=== PATIENT | female | born 1940 | race Two or more races ===

== ENCOUNTER 2017-08-06 12:01 | Inpatient (IN) | payer OTHER ==
[~2017-08-06] VITALS: Ht 142.2 cm; Wt 73.0 kg
[2017-08-06] MEDS ORDERED: PAXIL40 MG PO (12:41)
[2017-08-06] MEDS ORDERED: LIPITOR40 MG PO (12:41)
== END 2017-08-09 18:49 | disposition home or self-care (01) | DRG 743 ==
LOC: OB/GYN 08-08 06:15 → O/R 08-08 06:15 → SURG 08-08 08:30 → OB/GYN 08-08 16:07
PROVIDERS: Obstetrics & Gynecology Gynecologic Oncology
PROC: 0UT74ZZ Resection of Bilateral Fallopian Tubes, Percutaneous Endoscopic Approach (ICD-10-PCS; 2017-08-08)
PROC: 0UT24ZZ Resection of Bilateral Ovaries, Percutaneous Endoscopic Approach (ICD-10-PCS; 2017-08-08)
PROC: 0DNU4ZZ Release Omentum, Percutaneous Endoscopic Approach (ICD-10-PCS; 2017-08-08)
PROC: 0UT94ZZ Resection of Uterus, Percutaneous Endoscopic Approach (ICD-10-PCS; principal; 2017-08-08 08:30)
DX: D25.1 Intramural leiomyoma of uterus (principal); D06.7 Carcinoma in situ of other parts of cervix; E78.00 Pure hypercholesterolemia, unspecified; E66.8 Other obesity; M79.7 Fibromyalgia; N72 Inflammatory disease of cervix uteri; N83.292 Other ovarian cyst, left side

== ENCOUNTER 2023-02-25 14:18 | Inpatient (IN) | payer OTHER ==
[~2023-02-25] VITALS: Ht 154.9 cm; Wt 44.9 kg
[~2023-02-25 14:18] MED LIST: LIPITOR40 MG PO; PAXIL40 MG PO
--- NOTE | 2023-02-25 14:26 | NUR ---
SE RECIBE PTE ALERTA Y ORIENTADA FAMILIAR REFIERE TENER [facility] 3 SEMANAS CON DEBILIDAD GENERALIZADA Y POCO APETITO, LA MISMA TIENE HISTORIAL DE INFARTO. PTE NO TIENE NINIGUN MEDICO EN HOSPITAL. SE JORDAN VITALES Y REALIZA DEXTRO 110. SE TOMN VITALES Y SE DOUG EN AMANDA DE ESPERA.
--- NOTE | 2023-02-25 15:31 | NUR ---
AMPARO BETH ORIENTA A PTE SOBRE TRATAMIENTO E INSTRUCCIONES A SEGUIR, LEO REFIERE ENTENDER. LE COLECTA MUESTRAS, SE CANALIZA Y SE ADMINISTRA IV FLUIDS DENG ORDEN MEDICA
[2023-02-25 15:49] LABS: HEMATOCRIT 32.2 % (36.0-45.00); HEMOGLOBIN 10.7 g/dL (12.0-15.00); MEAN CELL VOLUME 88.5 fL (80.00-100.00); MEAN CORPUSCULAR HEMOGLOBIN 29.5 pg (27.00-32.0); MEAN CORPUSCULAR HGB CONC 33.3 g/dl (32.0-36.0); PLATELET COUNT 266 K/uL (150-450); RED BLOOD COUNT 3.64 M/uL (4.00-6.00); RED CELL DISTRIBUTION WIDTH 15.7 % (11.5-14.5)
--- NOTE | 2023-02-25 16:02 | NUR ---
SE COLOCA ANA LILIA Y SE ORIENTA A FAMILIAR SOBRE PROCESO A SEGUIR. SE ENTREGA RNVASE DE U/A, PENDIENTE A RECOLECTAR.
[2023-02-27 08:09] LABS: HEMATOCRIT 31.4 % (36.0-45.00); HEMOGLOBIN 10.3 g/dL (12.0-15.00); MEAN CELL VOLUME 89.9 fL (80.00-100.00); MEAN CORPUSCULAR HEMOGLOBIN 29.6 pg (27.00-32.0); PLATELET COUNT 267 K/uL (150-450); RED BLOOD COUNT 3.49 M/uL (4.00-6.00); RED CELL DISTRIBUTION WIDTH 15.9 % (11.5-14.5)
[2023-03-01 05:38] LABS: HEMATOCRIT 28.1 % (36.0-45.00); MEAN CELL VOLUME 89.8 fL (80.00-100.00); MEAN CORPUSCULAR HGB CONC 32.4 g/dl (32.0-36.0); PLATELET COUNT 179 K/uL (150-450); RED BLOOD COUNT 3.13 M/uL (4.00-6.00); RED CELL DISTRIBUTION WIDTH 14.9 % (11.5-14.5)
[2023-03-01 05:39] LABS: HEMOGLOBIN 9.1 g/dL (12.0-15.00)
[2023-03-04 07:41] LABS: HEMATOCRIT 29.8 % (36.0-45.00); HEMOGLOBIN 9.8 g/dL (12.0-15.00); MEAN CELL VOLUME 88.9 fL (80.00-100.00); MEAN CORPUSCULAR HEMOGLOBIN 29.3 pg (27.00-32.0); PLATELET COUNT 188 K/uL (150-450); RED BLOOD COUNT 3.35 M/uL (4.00-6.00)
[2023-03-05 06:54] LABS: HEMATOCRIT 24.3 % (36.0-45.00); HEMOGLOBIN 8.1 g/dL (12.0-15.00); MEAN CORPUSCULAR HEMOGLOBIN 29.3 pg (27.00-32.0); MEAN CORPUSCULAR HGB CONC 33.3 g/dl (32.0-36.0); PLATELET COUNT 190 K/uL (150-450); RED BLOOD COUNT 2.76 M/uL (4.00-6.00); RED CELL DISTRIBUTION WIDTH 15.2 % (11.5-14.5)
[2023-03-06 06:44] LABS: HEMATOCRIT 24.4 % (36.0-45.00); MEAN CELL VOLUME 88.9 fL (80.00-100.00); MEAN CORPUSCULAR HGB CONC 33.5 g/dl (32.0-36.0); PLATELET COUNT 199 K/uL (150-450); RED BLOOD COUNT 2.74 M/uL (4.00-6.00); RED CELL DISTRIBUTION WIDTH 15.5 % (11.5-14.5)
[2023-03-06 06:53] LABS: HEMOGLOBIN 8.2 g/dL (12.0-15.00); MEAN CORPUSCULAR HEMOGLOBIN 29.9 pg (27.00-32.0)
[2023-03-07 11:38] LABS: HEMATOCRIT 34.8 % (36.0-45.00); HEMOGLOBIN 11.4 g/dL (12.0-15.00); MEAN CELL VOLUME 88.4 fL (80.00-100.00); MEAN CORPUSCULAR HGB CONC 32.8 g/dl (32.0-36.0); PLATELET COUNT 208 K/uL (150-450); RED BLOOD COUNT 3.94 M/uL (4.00-6.00)
[2023-03-12 09:37] LABS: HEMATOCRIT 33.7 % (36.0-45.00); HEMOGLOBIN 11.4 g/dL (12.0-15.00); MEAN CELL VOLUME 89.1 fL (80.00-100.00); MEAN CORPUSCULAR HEMOGLOBIN 30.1 pg (27.00-32.0); MEAN CORPUSCULAR HGB CONC 33.8 g/dl (32.0-36.0); PLATELET COUNT 238 K/uL (150-450); RED BLOOD COUNT 3.78 M/uL (4.00-6.00); RED CELL DISTRIBUTION WIDTH 15.7 % (11.5-14.5)
== END 2023-03-13 00:13 | disposition home or self-care (01) | DRG 177 ==
LOC: ER 14:18 → MEDI 22:20 → MEDJ 22:20
PROVIDERS: Emergency Medicine; Internal Medicine Infectious Disease; ADMIT Internal Medicine; ATTEND Internal Medicine
PROC: BW21ZZZ Computerized Tomography (CT Scan) of Abdomen and Pelvis (ICD-10-PCS; 2023-02-27)
PROC: 02HV33Z Insertion of Infusion Device into Superior Vena Cava, Percutaneous Approach (ICD-10-PCS; 2023-02-27)
PROC: 3E0436Z Introduction of Nutritional Substance into Central Vein, Percutaneous Approach (ICD-10-PCS; 2023-02-27)
PROC: 0DH63UZ Insertion of Feeding Device into Stomach, Percutaneous Approach (ICD-10-PCS; principal; 2023-02-28)
PROC: 3E0G76Z Introduction of Nutritional Substance into Upper GI, Via Natural or Artificial Opening (ICD-10-PCS; 2023-03-01)
PROC: BB24ZZZ Computerized Tomography (CT Scan) of Bilateral Lungs (ICD-10-PCS; 2023-03-02)
PROC: 8E0ZXY6 Isolation (ICD-10-PCS; 2023-03-04)
PROC: BW40ZZZ Ultrasonography of Abdomen (ICD-10-PCS; 2023-03-06)
PROC: 30233N1 Transfusion of Nonautologous Red Blood Cells into Peripheral Vein, Percutaneous Approach (ICD-10-PCS; 2023-03-06)
DX: J69.0 Pneumonitis due to inhalation of food and vomit (principal); J85.1 Abscess of lung with pneumonia; A15.8 Other respiratory tuberculosis; D62 Acute posthemorrhagic anemia; N17.8 Other acute kidney failure; E87.0 Hyperosmolality and hypernatremia; Z68.1 Body mass index [BMI] 19.9 or less, adult; J90 Pleural effusion, not elsewhere classified; G30.8 Other Alzheimer's disease; F02.80 Dementia in other diseases classified elsewhere, unspecified severity, without behavioral disturbance, psychotic disturbance, mood disturbance, and anxiety; K29.40 Chronic atrophic gastritis without bleeding; R63.0 Anorexia; R13.19 Other dysphagia; E88.09 Other disorders of plasma-protein metabolism, not elsewhere classified; I12.9 Hypertensive chronic kidney disease with stage 1 through stage 4 chronic kidney disease, or unspecified chronic kidney disease; N18.9 Chronic kidney disease, unspecified; Z74.01 Bed confinement status